=== PATIENT | male | born 1955 | race Caucasian/White ===

== ENCOUNTER → 2025-01-14 11:17 | Outpatient (CLI) | payer MEDICARE, OTHER, SELFPAY ==
[2025-01-14 12:24] LABS: Add Manual Diff / Slide Review NO; Basophils Absolute Auto 100 /uL (0-100); Eosinophils Absolute Auto 100 /uL (0-450); Eosinophils Percent Auto 3.8 % (2-4); Hematocrit 38.1 % (41-53); Hemoglobin 12.9 g/dL (13.5-17.5); Lymphocytes Absolute Auto 1200 /uL (1100-4500); Mean Corpuscular Hemoglobin 31.3 PG (26-34); Mean Corpuscular Volume 92.2 fL (80-100); Monocytes Absolute Auto 400 /uL (0-900); Neutrophils Absolute Auto 1400 /uL (1500-7000); Neutrophils Percent Auto 44.2 % (50-75); Platelet Count 278 X10^3/uL (150-400); Red Blood Cell Count 4.13 X10^6/uL (4.5-5.9); Red Cell Distribution Width 13.3 % (11.6-14.8); White Blood Cell Count 3.2 X10^3/uL (4.5-11.0)
[2025-01-14 12:40] LABS: Hemoglobin A1C% w Est Avg Glu 5.3 % (4.0-6.0)
[2025-01-14 12:50] LABS: Alanine Aminotransferase 28 IU/L (<50); Albumin 4.6 g/dL (3.5-5.0); Albumin Globulin Ratio 1.8 (1.0-2.8); Alkaline Phosphatase 51 U/L (38-126); Aspartate Aminotransferase 35 IU/L (17-59); BUN Creatinine Ratio 16.1 (6-22); Bilirubin Total 0.8 mg/dL (0.2-1.3); Blood Urea Nitrogen 15 mg/dL (9-20); Calcium 9.3 mg/dL (8.4-10.2); Carbon Dioxide 24 mmol/L (22-32); Chloride 105 mmol/L (98-107); Cholesterol 238 mg/dL (140-199); Estimated Glomerular Filt Rate > 60 mL/min (>60); Globulin 2.5 g/dL (1.7-4.1); Glucose 104 mg/dL (80-110); HDL Cholesterol 80 mg/dL (40-60); HEMOLYSIS < 15 (0-50); LDL Cholesterol Calculated 142 mg/dL (<100); Potassium 4.2 mmol/L (3.4-5.1); Sodium 138 mmol/L (137-145); Total Protein 7.1 g/dL (6.3-8.2); Triglycerides 80 mg/dL (35-150)
[2025-01-14 12:52] LABS: HEMOLYSIS < 15 (0-50); Iron 127 ug/dL (49-181)
[2025-01-14 13:02] LABS: Percent Iron Saturation 48 % (20-50); Total Iron Binding Capacity 265 ug/dL (261-462); Transferrin 252 mg/dL (206-381)
[2025-01-14 13:26] LABS: TSH w/ Reflex to FT4 1.81 uIU/mL (0.47-4.68)
[2025-01-14 13:38] LABS: Vitamin B12 Reflex MMA if <400 797 pg/mL (239-931)
[2025-01-14 14:01] LABS: Folate 11.3 ng/mL (2.76-20.0)
[2025-01-14 14:55] LABS: Vitamin D 25 Hydroxy (D3) 28.8 ng/mL (30.0-100.0)
[2025-02-01 10:42] LABS: Fecal Immunochemical Test Negative (Negative)
== END ==
PROVIDERS: PCP Family Medicine; Referring Provider Family Medicine; Visit Provider Family Medicine
DX: Z13.1 Encounter for screening for diabetes mellitus (principal); R41.89 Other symptoms and signs involving cognitive functions and awareness; R25.2 Cramp and spasm; Z76.89 Persons encountering health services in other specified circumstances; Z13.220 Encounter for screening for lipoid disorders; J32.9 Chronic sinusitis, unspecified; M25.50 Pain in unspecified joint; M79.89 Other specified soft tissue disorders; Z68.21 Body mass index [BMI] 21.0-21.9, adult
CPT/HCPCS: 36415; 80053; 80061; 82274; 82306; 82607; 82746; 83036; 83540; 83550; 84443; 85025

== ENCOUNTER → 2025-02-12 11:07 | Outpatient (CLI) | payer MEDICARE, OTHER, SELFPAY ==
[2025-02-12 12:00] LABS: Add Manual Diff / Slide Review NO; Basophils Absolute Auto 100 /uL (0-100); Basophils Percent Auto 1.8 % (0-2); Eosinophils Absolute Auto 100 /uL (0-450); Eosinophils Percent Auto 3.2 % (2-4); Hematocrit 36.2 % (41-53); Hemoglobin 12.5 g/dL (13.5-17.5); Lymphocytes Absolute Auto 1200 /uL (1100-4500); Lymphocytes Percent Auto 36.3 % (25-40); Mean Corpuscular HGB Conc 34.4 % (30-36); Mean Corpuscular Hemoglobin 31.8 PG (26-34); Mean Corpuscular Volume 92.4 fL (80-100); Monocytes Absolute Auto 400 /uL (0-900); Monocytes Percent Auto 10.5 % (3-14); Neutrophils Absolute Auto 1600 /uL (1500-7000); Neutrophils Percent Auto 48.2 % (50-75); Platelet Count 246 X10^3/uL (150-400); Red Blood Cell Count 3.92 X10^6/uL (4.5-5.9); Red Cell Distribution Width 13.5 % (11.6-14.8); White Blood Cell Count 3.4 X10^3/uL (4.5-11.0)
[2025-02-12 12:04] LABS: Reticulocyte Count, Percent 0.5 % (0.9-2.6)
[2025-02-12 12:55] LABS: Ferritin 35 ng/mL (18-464)
[2025-02-12 17:01] LABS: HEMOLYSIS < 15 (0-50); Iron 100 ug/dL (49-181)
[2025-02-12 17:12] LABS: Percent Iron Saturation 36 % (20-50); Total Iron Binding Capacity 277 ug/dL (261-462); Transferrin 226 mg/dL (206-381)
== END ==
LOC: LAB 11:08
PROVIDERS: PCP Family Medicine; Referring Provider Family Medicine; Visit Provider Family Medicine
DX: D64.9 Anemia, unspecified (principal); Z68.21 Body mass index [BMI] 21.0-21.9, adult; R41.89 Other symptoms and signs involving cognitive functions and awareness; R25.2 Cramp and spasm; D72.819 Decreased white blood cell count, unspecified; M25.50 Pain in unspecified joint
CPT/HCPCS: 36415; 82728; 83540; 83550; 85025; 85045

== ENCOUNTER → 2025-03-09 12:14 | Outpatient (CLI) | payer MEDICARE, OTHER, SELFPAY ==
[2025-03-11 11:13] LABS: Fecal Immunochemical Test Negative (Negative)
== END ==
LOC: LAB 12:16
PROVIDERS: PCP Family Medicine; Referring Provider Family Medicine; Visit Provider Family Medicine
DX: D64.9 Anemia, unspecified (principal)
CPT/HCPCS: 82274